=== PATIENT | female | born 1970 | race Caucasian/White ===

== ENCOUNTER → 2020-01-05 | Day surgery (SDC) | payer BC, OTHER ==
[~2020-01-05] MED LIST: Acetaminophen 1,000 MG in Premix Bag 1 BAG IV PRN; Acetaminophen/HYDROcodone 325-5 MG Tab PO PRN; Bupivacaine 0.25% 10 ML SDV ONE; Etomidate 2 MG/ML 20 ML SDV IVPUSH ONE; Glycopyrrolate 0.2 MG/ML SDV ONE; Heparin Sodium 5,000 Units/ML Vial SUBCUT ONE; Hetastarch 6% in NS 500 ML Bag IV SCH; Ketorolac 30 MG/ML SDV IVPUSH ONE; Ketorolac 30 MG/ML SDV ONE; Lactated Ringers 1,000 ML IV SCH; Lidocaine 2% 5 ML SDV ONE; Midazolam 1 MG/ML 2 ML SDV ONE; Ondansetron 4 MG/2 ML SDV ONE; Phenylephrine 1% 10 MG/ML SDV ONE; Phenylephrine/Normal Saline 100 MCG/ML 10 ML Syringe ONE; Propofol 200 MG/20 ML SDV ONE; Sodium Chloride 0.9% 20 ML ONE; ceFAZolin 1 GM Vial ONE; cefOXitin 1 GM Vial ONE; fentaNYL 100 MCG/2 ML SDV IVPUSH PRN; fentaNYL 100 MCG/2 ML SDV ONE; fentaNYL 250 MCG/5 ML SDV ONE
[2020-01-05 08:20] LABS: BLOOD UREA NITROGEN,BUN 15 mg/dL (7.0-18.0); CARBON DIOXIDE,CO2 26.8 mmol/L (21.0-32.0); CHLORIDE,CL 105 mmol/L (98-107); GLUCOSE RANDOM 85 mg/dL (74-106); POTASSIUM,K 3.8 mmol/L (3.5-5.1); SODIUM,NA 140 mmol/L (136-145)
--- NOTE | 2020-01-05 08:31 | PCM.PREANE ---
Preanesthetic Assessment - Anesthesia/Transfusion/Family Hx Anesthesia History: Prior Anesthesia Without Reaction Family History of Anesthesia Reaction: No Transfusion History: No Prior Transfusion(s) - Review of Systems General: No Symptoms Pulmonary: No Symptoms Cardiovascular: No Symptoms Gastrointestinal: No Symptoms Neurological: No Symptoms Other: Reports: None - Physical Assessment NPO Status Date: 01/04/20 Height: 5 ft 7 in Weight: 71.668 kg ASA Class: 2 Airway Class: Mallampati = 2 Dentition: Reports: Normal Dentition ROM/Head Extension: Full Lungs: Clear to Auscultation, Normal Respiratory Effort Cardiovascular: Regular Rate, Regular Rhythm - Lab Values: Laboratory Last Values WBC 6.27 K/uL (4.0-11.0) 01/05/20 07:55 RBC 4.70 M/uL (4.30-5.90) 01/05/20 07:55 Hgb 14.0 g/dL (12.0-16.0) 01/05/20 07:55 Hct 42.4 % (36.0-46.0) 01/05/20 07:55 MCV 90.2 fL (80.0-98.0) 01/05/20 07:55 MCH 29.8 pg (27.0-32.0) 01/05/20 07:55 MCHC 33.0 g/dL (31.0-37.0) 01/05/20 07:55 RDW Std Deviation 47.5 fl (28.0-62.0) 01/05/20 07:55 RDW Coeff of Belkis 14 % (11.0-15.0) 01/05/20 07:55 Plt Count 318 K/uL (150-400) 01/05/20 07:55 MPV 10.50 fL (7.40-12.00) 01/05/20 07:55 Nucleated RBC % 0.0 /100WBC 01/05/20 07:55 Nucleated RBCs # 0 K/uL 01/05/20 07:55 Sodium 140 mmol/L (136-145) 01/05/20 07:55 Potassium 3.8 mmol/L (3.5-5.1) 01/05/20 07:55 Chloride 105 mmol/L (98-107) 01/05/20 07:55 Carbon Dioxide 26.8 mmol/L (21.0-32.0) 01/05/20 07:55 BUN 15 mg/dL (7.0-18.0) 01/05/20 07:55 Creatinine 0.9 mg/dL (0.6-1.0) 01/05/20 07:55 Est Cr Clr Drug Dosing 73.53 mL/min 01/05/20 07:55 Estimated GFR (MDRD) > 60.0 ml/min 01/05/20 07:55 Glucose 85 mg/dL (74-106) 01/05/20 07:55 Calcium 8.9 mg/dL (8.5-10.1) 01/05/20 07:55 HCG, Qual NEGATIVE (NEG) 01/05/20 07:55 - Allergies Allergies/Adverse Reactions: Allergies Allergy/AdvReac Type Severity Reaction Status Date / Time tetanus immune globulin Allergy Swelling Verified 01/05/20 08:23 - Blood Blood Available: No - Anesthesia Plan Pre-Op Medication Ordered: None - Acknowledgements Pt an Appropriate Candidate for the Planned Anesthesia: Yes Alternatives and Risks of Anesthesia Discussed w Pt/Guardian: Yes Pt/Guardian Understands and Agrees with Anesthesia Plan: Yes Additional Comments: PMH: gerd, hx of DVT PLAN: ga/lma PreAnesthesia Questionnaire HEENT History: Reports: Other (See Below) Other HEENT History: wears glasses Cardiovascular History: Reports: Blood Clots/VTE/DVT, Other (See Below) Other Cardiovascular History: was told at age 12 she had mitral valve prolapse, "no one has mentioned it since", hx DVT rt leg in 2014 Respiratory History: Reports: None Gastrointestinal History: Reports: None Genitourinary History: Reports: None DRAFTER (CAD) ELECTRICAL History: Reports: Dysfunctional Uterine Bleeding, , Spontaneous Musculoskeletal History: Reports: None Neurological History: Reports: None Psychiatric History: Reports: None Endocrine/Metabolic History: Reports: None Hematologic History: Reports: None Immunologic History: Reports: None Oncologic (Cancer) History: Reports: None Dermatologic History: Reports: None - Past Surgical History Head Surgeries/Procedures: Reports: None HEENT Surgical History: Reports: None Cardiovascular Surgical History: Reports: None Respiratory Surgical History: Reports: None GI Surgical History: Reports: Bariatric Procedure, Cholecystectomy, Other (See Below) Other GI Surgeries/Procedures: takes omeprazole due to having gastric sleeve Female Surgical History: Reports: Tubal Ligation Other Female Surgeries/Procedures: laparoscopy in the past Endocrine Surgical History: Reports: None Neurological Surgical History: Reports: None Musculoskeletal Surgical History: Reports: None Oncologic Surgical History: Reports: None Dermatological Surgical History: Reports: None - SUBSTANCE USE Smoking Status *Q: Never Smoker Recreational Drug Use History: No - HOME MEDS Home Medications: Home Meds Aspirin [Low Dose Aspirin EC] 81 mg PO DAILY 12/29/19 [History] Calcium Carb/Vitamin D3/Vit K1 [Viactiv 650 mg-12.5 Mcg Chew] 1 tab.chew CHEW DAILY 12/29/19 [History] Iron 65 mg PO DAILY 12/29/19 [History] Multivitamin [Multivitamins] 1 tab PO DAILY 12/29/19 [History] Omeprazole 20 mg PO DAILY 12/29/19 [History] - CURRENT (IN HOUSE) MEDS Current Meds: Current Medications Lactated Ringer's (Ringers, Lactated) 1,000 mls @ 125 mls/hr IV ASDIRECTED SARIAH Last Admin: 01/05/20 08:22 Dose: 125 mls/hr Discontinued Medications Fentanyl (Sublimaze) Confirm Administered Dose 100 mcg .ROUTE .STK-MED ONE Stop: 01/05/20 07:16 Glycopyrrolate (Robinul) Confirm Administered Dose 0.2 mg .ROUTE .STK-MED ONE Stop: 01/05/20 07:17 Heparin Sodium (Porcine) (Heparin Sodium) 5,000 units SUBCUT ONETIME ONE Stop: 01/05/20 08:01 Ketorolac Tromethamine (Toradol) Confirm Administered Dose 30 mg .ROUTE .STK- MED ONE Stop: 01/05/20 07:17 Lidocaine (Xylocaine-Mpf 2%) Confirm Administered Dose 5 ml .ROUTE .STK-MED ONE Stop: 01/05/20 07:17 Midazolam HCl (Versed 1 Mg/Ml) Confirm Administered Dose 2 mg .ROUTE .STK-MED ONE Stop: 01/05/20 07:16 Ondansetron HCl (Zofran) Confirm Administered Dose 4 mg .ROUTE .STK-MED ONE Stop: 01/05/20 07:17 Propofol (Diprivan 20 Ml) Confirm Administered Dose 200 mg .ROUTE .STK-MED ONE Stop: 01/05/20 07:16
--- NOTE | 2020-01-05 13:00 | PCM48HPAN ---
Post Anesthesia Note - EVALUATION WITHIN 48HRS OF ANESTHETIC Vital Signs in Normal Range: Yes Patient Participated in Evaluation: Yes Respiratory Function Stable: Yes Airway Patent: Yes Cardiovascular Function Stable: Yes Hydration Status Stable: Yes Pain Control Satisfactory: Yes Nausea and Vomiting Control Satisfactory: Yes Mental Status Recovered: Yes Vital Signs: Last Vital Signs Temp 97.2 F 01/05/20 11:48 Pulse 68 01/05/20 12:13 Resp 16 01/05/20 12:13 BP 101/60 01/05/20 12:13 Pulse Ox 100 01/05/20 12:13
--- NOTE | 2020-01-05 13:00 | PCM.POSTAN ---
POST ANESTHESIA ASSESSMENT - MENTAL STATUS Mental Status: Alert, Oriented - VITAL SIGNS Vital Signs: Last Vital Signs Temp 97.2 F 01/05/20 11:48 Pulse 68 01/05/20 12:13 Resp 16 01/05/20 12:13 BP 101/60 01/05/20 12:13 Pulse Ox 100 01/05/20 12:13 - RESPIRATORY Respiratory Status: Respiratory Rate WNL, Airway Patent, O2 Saturation Stable - CARDIOVASCULAR CV Status: Pulse Rate WNL, Blood Pressure Stable - GASTROINTESTINAL GI Status: No Symptoms - POST OP HYDRATION Hydration Status: Adequate & Stable
--- NOTE | 2020-01-05 14:48 | OR ---
SURGEON: Abdiel Bailey MD DATE OF PROCEDURE: 01/05/2020 INDICATION: A 49-year-old female with irregular and heavy bleeding. She has a history of multiple fibroids and uterine polyps on ultrasound. Options were discussed with her and she desired surgical management with hysteroscopic myomectomy and polypectomy. PREOPERATIVE DIAGNOSES: 1. Uterine polyps. 2. Uterine fibroids. POSTOPERATIVE DIAGNOSES: 1. Uterine polyps. 2. Uterine fibroids. PROCEDURES PERFORMED: Hysteroscopy, dilation and curettage, polypectomy with MyoSure. ANESTHESIA: General anesthesia. ANESTHESIOLOGIST: Dr. Bhavesh Hercules. FINDINGS: Uterus enlarged with fundal fibroid, measures approximately 8 week size. Endometrial cavity covered with multiple uterine polyps. Normal-appearing vagina and cervix. DESCRIPTION OF PROCEDURE: The patient was consented, the risks of the procedure were discussed, and all questions answered. She was taken to the operating room, placed under general anesthesia. She was placed in dorsal lithotomy position with her legs supported using stirrups. She was prepped with Betadine and draped in sterile fashion. Her bladder was drained with a straight catheter. A bimanual exam was done. The uterus was found to be approximately 8-week size with notable anterior fibroid. Uterus was anteverted and mobile. The cervix and vagina were grossly normal with no lesions. Weighted speculum was placed in the posterior vagina and the anterior lip of the cervix was grasped with a single-tooth tenaculum. The cervix was carefully dilated with Hegar dilators to 6 mm. The hysteroscope was placed in the uterus under direct visualization with normal saline as a distention medium. The uterine cavity was noted to be covered with multiple uterine polyps from the anterior wall. MyoSure device was placed in the hysteroscope working channel and the polyps were removed. At this point of the procedure, I was informed by nursing that the fluid deficit was greater than 5000cc. No perforations were noted in the uterus. Cavity appeared to be intact. The hysteroscopy was then terminated. A sharp curettage was performed and scraping done of the entire uterine lining. The endometrial curettings were placed on Telfa pads and sent to pathology for evaluation. The tenaculum was removed and the cervix was found to have a small amount of bleeding. Silver nitrate was used to coagulate the site of bleeding and hemostasis was confirmed. The weighted speculum was then removed. The patient was taken off the dorsal lithotomy position. She was awakened from anesthesia and taken to the recovery room in stable condition. MARTA ROSE /[id number] MTDD
--- NOTE | 2020-01-05 15:10 | CR ---
Chest: Portable view of the chest was obtained. Comparison: No prior chest x-ray. Pneumothorax is noted on the right side which is moderate in size. Lungs show slight atelectasis on the right side. Lungs otherwise are clear. Heart size and mediastinum are normal. Impression: 1. Moderate sized right-sided pneumothorax. Mild right lung atelectasis. Diagnostic code #5 This report was dictated in [place] Standard Time
[2020-01-05 15:28] LABS: BLOOD UREA NITROGEN,BUN 13 mg/dL (7.0-18.0); CARBON DIOXIDE,CO2 21.6 mmol/L (21.0-32.0); CHLORIDE,CL 109 mmol/L (98-107); GLUCOSE RANDOM 126 mg/dL (74-106); SODIUM,NA 141 mmol/L (136-145)
--- NOTE | 2020-01-05 18:46 | PCM.SN ---
- Free Text/Narrative Note: Pt developed increasing abdominal pain with referral to her shoulder while in phase 2 PACU. BP stable when recumbent but falls to 80 systolic when sitting upright. No tachycardia. Physical exam revealed significant abdominal tenderness with marked rebound pain. Suspect intra-abdominal bleeding with peritoneal and diaphragmatic irritation. Surgeon here. Fast scan performed in PACU bed revealed significant amount of intraabdominal fluid. CXR normal for pulm congestion. Hb now 40, was 42. INR=1.1, 2nd IV line placed. type and crossed for 2 units PRBC, 2 FFP thawed to be given 1:1 with pRBC if massive intra=abdominal hemorrhage is found. 500 ML hespan (colloid) started while OR is being prepared. Pt received fentanyl 50 mcg + 50 mcg both iv while waiting in PACU for the OR to be prepared. Consent (verbal) for anesthesia was obtained from both patient and .
--- NOTE | 2020-01-05 18:56 | PCM.OPNOTE ---
- General Post-Op/Procedure Note Date of Surgery/Procedure: 01/05/20 Operative Procedure(s): Exploratory laparoscopy converted to open laparotomy Findings: Multiple irregular perforations of the rectum down to the peritoneal reflection and perforation of the lateral rectal stalk into the mesorectum Pre Op Diagnosis: Postoperative hypotension Post-Op Diagnosis: Uterine perforation, multiple rectal perforations Anesthesia Technique: General ET Tube Primary Surgeon: Petra Serrano Secondary Surgeon: Abdiel Bailey Anesthesia Provider: Bhavesh Hercules Filler Leaf Cutter Long: Omer Pearson Fluid Replacement, Intraop: 2,500 Output, Urine Amount: 200 EBL in mLs: 25 Drain/Tube Comments:: Open abdomen Condition: Good Free Text/Narrative:: Intake & Output 01/05/20 01/05/20 01/05/20 06:59 14:59 22:59 Intake Total 1250 150 Output Total 200 Balance 1250 -50
[2020-01-05 19:12] VITALS: BP 100/43; PULSE 74
--- NOTE | 2020-01-06 00:51 | OR ---
SURGEON: Abdiel Bailey MD DATE OF PROCEDURE: 01/05/2020 INDICATION: A 49-year-old status post hysteroscopy, D and C, and polypectomy with MyoSure. 3 hours postoperatively was informed by Nursing and Anesthesia staff that the patient has been having worsening diffuse abdominal pain in the lower abdomen and upper abdomen, which was worse with inspiration and radiating to her chest and shoulder. She then became hypotensive, 70 -100 over 40 to 60s. I evaluated the patient by bedside. She was tachypnic but Sat 99% on RA. HR 50-110s. Abdomen was soft but had rebound tenderness diffusely. She was given IVF bolus and pain medication, but did not have complete relief. Chest xray was normal. FAST exam performed showed a large amount of free fluid in the pelvis and upper abdomen. Considering the hysteroscopy had large fluid deficit and the patient's sudden change in status, there was concern for perforation and intraperitoneal bleeding. After discussion with the patient, decision was made for diagnostic laparoscopy and possible laparotomy. Procedure was explained to the patient. Questions answered and consent signed. CBC, type and screen CMP, PT/PTT/INR was sent. FFP was ordered on hold. PREOPERATIVE DIAGNOSES: 1. Suspected intraperitoneal bleeding. 2. Possible uterine perforation. POSTOPERATIVE DIAGNOSES: 1. Posterior wall uterine perforation. 2. Rectal lacerations. PROCEDURE PERFORMED: Diagnostic laparoscopy, evacuation of hemoperitoneum, and exploratory laparotomy. ANESTHESIA: General anesthesia. ANESTHESIOLOGIST: Dr. Bhavesh Hercules. ESTIMATED BLOOD LOSS: 500 mL. DESCRIPTION OF THE PROCEDURE: The patient was taken to the operating room. She was given 2 g Ancef IV. She underwent general anesthesia with no complications. Her legs were then placed in dorsal lithotomy position and legs supported using stirrups, taking care to relieve all pressure points. She was prepped and draped in usual sterile fashion. Rod catheter was used to drain the bladder. A weighted speculum was placed in the posterior vagina. The vagina and cervix were normal appearing and did not have any bleeding or perforations. The cervix was grasped with an Allis clamp and HUMI uterine manipulator was placed in the uterine cavity. The attention was then turned to the abdomen. A 5 mm incision was made above the umbilicus. A Veress needle was used for entry. Intraperitoneal location was confirmed in the usual fashion. CO2 gas was initiated with low opening pressure and pneumoperitoneum established to 15 mmHg. Optiview trocar was placed under visualization with laparoscope. Intraperitoneal location was confirmed. A large amount of blood-tinged fluid was noted in the abdomen. A 5 mm port was then placed in the right lower quadrant under visualization. Suction clip bolter and wrapper was used to drain fluid from the abdomen. Approximately 5 L of fluid was removed. A blunt probe was then used to sweep the bowel away from the pelvis and the pelvis was carefully examined. The uterus, fallopian tubes and ovaries all appeared intact without any active bleeding. A small site of perforation was noted posterior to the uterus just above the cervix, and small amount of fecal material was also noted in the cul- de-sac. At this point, a rectal injury was suspected, and general surgeon, Dr. Petra Serrano, was called to come in to evaluate. She agreed that there was likely injury to the anterior rectum; however, it was not clearly seen by laparoscopy. Therefore, decision was made to convert to laparotomy. The port site incisions were closed with sara. See operative report by Dr. Serrano. After careful examination, there was noted to be multiple lacerations to the anterior rectum. Considering the limited resources available in the hospital and lack of colorectal surgeon, decision was made By and to transfer the patient to facility that would allow Colorectal Surgery perform the resection. The incision was left open and packed with amando. The uterine manipulator was removed. The sponge and lap counts were correct. The patient was kept intubated and arranged for transfer to [place]. She was mildly hypotensive and was maintained on sylvia-synephrine during the case. MARTA / ROSE /[id number] LISA
--- NOTE | 2020-01-06 01:00 | OR ---
SURGEON: PETRA SHETH MD DATE OF PROCEDURE: 01/05/2020 PREOPERATIVE DIAGNOSIS: Postoperative hypotension and pain. POSTOPERATIVE DIAGNOSIS: Uterine perforation, multiple rectal perforations. PRIMARY SURGEON: Dr. Petra Sheth. SECONDARY SURGEON: Dr. Abdiel Bailey. AGING BOX HAND: Dr. Omer Pearson. FLUIDS: See anesthesia record. ESTIMATED BLOOD LOSS: 25 mL. URINE OUTPUT: 200 mL. FINDINGS: Posterior wall uterine perforation with associated multiple irregular perforations of the rectum down to the peritoneal reflection and perforation of the lateral rectal stalk into the mesorectum. COMPLICATIONS: None. INDICATIONS: The patient is a 49-year-old female who underwent a hysteroscopy, D and C, and polypectomy with the use of a MyoSure device earlier today with Dr. Abdiel Bailey, proof machine operator. The patient had abdominal pain in the postoperative period and became hypotensive. The patient was consented for an exploratory laparoscopy given concern for possible uterine perforation and hemorrhage. Dr. Bailey took the patient back and in the process of her procedure, identified not only bloody fluid within the pelvis, but evidence of fecal material. I was then called into the case to assist and evaluate. I was unable to visit with the patient preoperatively. PROCEDURE IN DETAIL: I scrubbed into the case. The patient was on the operating room table in supine position in [facility]. There were two 5-mm trocars in the abdomen; 1 in the periumbilical area and 1 in the left lower quadrant. A uterine manipulator was used to elevate the uterus and I turned my attention to the pelvis. There was a large amount of bloody serous fluid within the pelvis. This was suctioned out. I noted some clot to be in the space between the uterus and the rectum. Upon suctioning, stool was encountered. Given how low this perforation appeared, the decision was made to convert to an open procedure to allow better exploration and possible repair. The 5-mm trocars were removed and skin sara were used to close the incision sites at the skin level. A lower midline incision was made using a 15 blade. Cautery was used to dissect down through layers of the abdominal wall. The peritoneum was elevated and incised sharply with the Metzenbaum scissors. Retractors were then put in place. There appeared to be no damage to the sigmoid colon and I followed this down along the rectum. With a retractor in place, I was able to look deep into the pelvis. The patient appeared to have multiple irregular lacerations to the rectum itself. These were large and full thickness. There was even an opening along the right lateral stalk extending into the mesorectum. Given the extent of the damage, I asked my partner, Dr. Omer Pearson, to come in and assist. We both agreed that the extensive damage would potentially require a rectal excision with either end-colostomy or primary anastomosis and proximal diversion. However, given how low the area of perforation was, we do not feel it would be safe for us to perform this here. The patient would require a colorectal surgeon with more expertise in order to have a safe surgery. The area was suctioned free of any debris and fluid. There was minimal bleeding along the rectum itself. A perforated Cassette Drape was placed within the abdomen to protect the bowel. A moistened towel was then placed over the top of this. A 20-English chest tube was placed over the top of this blue towel and another blue towel was placed on top. Ioban was used to cover this. A tubing was then hooked to suction. The patient tolerated the procedure well and was slightly hypotensive on a Vito-Synephrine drip upon completion of the procedure. After the procedure, I went to visit with the patient's family and called an outside hospital to see if I could transfer the patient. [facility] did not have a colorectal surgeon on-call, so I was transferred to [facility]. I spoke to Dr. Fountain, colorectal surgeon, who accepted care of the patient. ARJUN / ROSE /[id number] LISA
--- NOTE | 2020-01-06 09:54 | US ---
Limited abdominal ultrasound: Multiple real-time images were obtained transabdominally. Nonspecific fluid seen within all 4 quadrants of the abdominal cavity. Impression: 1. Diffuse nonspecific fluid within the abdomen. Diagnostic code #3 This report was dictated in [place] Standard Time
== END ==
LOC: MW.SDS 07:25
PROVIDERS: ATTEND Obstetrics & Gynecology
DX: D25.9 Leiomyoma of uterus, unspecified (principal); N84.0 Polyp of corpus uteri; N99.71 Accidental puncture and laceration of a genitourinary system organ or structure during a genitourinary system procedure; K91.72 Accidental puncture and laceration of a digestive system organ or structure during other procedure; Y65.8 Other specified misadventures during surgical and medical care; Y92.234 Operating room of hospital as the place of occurrence of the external cause; Z79.82 Long term (current) use of aspirin; Z79.899 Other long term (current) drug therapy; Z86.718 Personal history of other venous thrombosis and embolism; Z53.31 Laparoscopic surgical procedure converted to open procedure
CPT/HCPCS: 36415; 36430; 49000; 58558; 71045; 76705; 80048; 80053; 84703; 85025; 85027; 85610; 85730; 86850; 86900; 86901; 86920; 86921; 86922; J0330; J0690; J0694; J1644; J1885; J2001; J2250; J2370; J2405; J2704; J3010; J3490; J7120; P9017; 94002